=== PATIENT | female | born 1940 | race Caucasian/White ===

== ENCOUNTER → 2017-10-27 | Outpatient (CLI) | payer MEDICARE ==
[~2017-10-27] MED LIST: ALLOPURINOL100 MG PO; ASPIR 8181 MG PO; ASPIRIN; BENAZEPRIL HCL10 MG PO; HYDROXYCHLOROQ200 MG PO; LOSARTAN POTAS100 MG PO; LOVASTATIN; LOVASTATIN40 MG PO; MELATONIN3 MG PO; MELOXICAM; MELOXICAM15 MG PO; METOPROLOL HCT; METOPROLOL SUCC50 MG PO; METOPROLOL-HCT1 EAC1 PO; OXYBUTYNIN CHLOR5 MG PO; PANTOPRAZOLE; PLAQUENIL200 MG PO; PLAVIX; PLAVIX75 MG PO; POTASSIUM; POTASSIUM CHLO10 ME1 PO; PREDNISONE5 MG PO; PROTONIX40 MG PO; REGADENOSON 0.4 MG/5 ML SYR IV ONE; SERTRALINE HCL50 MG PO; STOOL SOFTENER50 MG PO
--- NOTE | 2017-10-27 13:16 | Cardiology Report ---
DATE OF STUDY: October 27, 2017 LEXISCAN STRESS TEST INDICATIONS: CAD. DESCRIPTION OF PROCEDURE: After informed consent, patient was brought to the stress lab. She was given 11 mCi of technetium 99 Myoview, and myocardial perfusion SPECT images were obtained in the horizontal long-axis, short-axis and vertical long-axis views. Subsequently, patient was given 0.4 mg Lexiscan over 10 seconds. Patient was given 33 mCi of technetium 99 Myoview, and myocardial perfusion SPECT images were obtained in the horizontal long-axis, short-axis and vertical long-axis views. Gating images were also obtained. Patient tolerated the procedure without any complications. REPORT: Baseline EKG shows sinus rhythm at 67 beats per minute, normal axis, normal intervals, nonspecific ST-T changes. PARAMETERS 1. Resting heart rate is 67 beats per minute. 2. Maximum heart rate is 92 beats per minute. 3. Resting blood pressure 148/75 mmHg. 4. Maximum blood pressure 153/78 mmHg. REASON FOR TERMINATION: Endpoint attained. INTERPRETATION 1. Negative for chest pain. 2. Negative for arrhythmias. 3. Blood pressure response consistent with Lexiscan. 4. No significant ST-T changes seen during Lexiscan infusion compared to baseline. 5. Analysis of SPECT images reveals uniform radioisotope uptake in all segments of the myocardium without any significant perfusion defects. CONCLUSION 1. No evidence of significant ischemia or infarction on this study. 2. No wall motion abnormalities. 3. Overall ejection fraction is 69%. Job#: [id number] EV
== END ==
LOC: NM 07:51
DX: I25.10 Atherosclerotic heart disease of native coronary artery without angina pectoris (principal); I10 Essential (primary) hypertension; N18.9 Chronic kidney disease, unspecified; E78.5 Hyperlipidemia, unspecified
CPT/HCPCS: 78452; 93017; A9502

== ENCOUNTER 2019-07-02 11:10 | Emergency (ER) | payer MEDICARE ==
[~2019-07-02] VITALS: Ht 160 cm; Wt 88.2 kg
[~2019-07-02 11:10] MED LIST changes: -REGADENOSON 0.4 MG/5 ML SYR IV ONE
--- OUTSIDE RECORDS SUMMARY | 2019-07-02 11:14 | XMS REPORT ---
Author Author [facility] Address Unknown Phone Unavailable Care Team Providers Care Sas Developer Analyst Name Role Phone TYRA ALANIZ Unavailable Unavailable Problems This patient has no known problems. Allergies, Adverse Reactions, Alerts This patient has no known allergies or adverse reactions. Medications This patient has no known medications. Results Test Description Test Time Test Comments Text Results Atomic Results Result Comments SCR MAMM BILATERAL SUMAYA CAD DIGITAL 2019-01-04 11:59:01 - SCR MAMM BILATERAL SUMAYA CAD DIGITALBILATERAL DIGITAL SCREENING MAMMOGRAM 3D/2D WITH CAD: 01/04/2019CLINICAL: Asymptomatic. Digital breast tomosynthesis was performed in addition to routine CC and MLO views. Current mammographic images were evaluated by either a [employer] M-Vu or a [employer] CAD (computer aided detection system). Comparison is made to exams dated 12/23/2017 mammogram and 07/30/2016 mammogram - [facility]. There are scattered fibroglandular tissues in both breasts. There are benign vascular calcifications and calcifications in both breasts. No suspicious mass, architectural distortion, malignant type calcification, or lymph node abnormality detected. Breast architecture is stable compared to prior exams.IMPRESSION: BENIGNThere is no mammographic evidence of malignancy. Resume annual screening mammography in one year. Pao lozoya/penrad:01/04/2019 11:59:01 Rubber Goods Inspector: Sarah Estrada , [facility] sent: BIRADS 1-2 Normal Mammogram BI-RADS: 2 Benign Stress Test - Treadmill ONLY [address] [address] Patient Name : MILADYS WOODWARD MR #: [id number] : 1940 Age/Sex: 77/F Adm Physician : TYRA ALANIZ MD Admit Date : Location : [place] Room/Bed : REPORT: Cardiology Report DATE OF STUDY: October 27, 2017 LEXISCAN STRESS TEST INDICATIONS: CAD. DESCRIPTION OF PROCEDURE: After informed consent, patient was brought to the stress lab. She was given 11 mCi of technetium 99 Myoview, and myocardial perfusion SPECT images were obtained in the horizontal long-axis, short-axis and vertical long-axis views. Subsequently, patient was given 0.4 mg Lexiscan over 10 seconds. Patient was given 33 mCi of technetium 99 Myoview, and myocardial perfusion SPECT images were obtained in the horizontal long- axis, short-axis and vertical long-axis views. Gating images were also obtained. Patient tolerated the procedure without any complications. REPORT: Baseline EKG shows sinus rhythm at 67 beats per minute, normal axis, normal intervals, nonspecific ST-T changes. PARAMETERS 1. Resting heart rate is 67 beats per minute. 2. Maximum heart rate is 92 beats per minute. 3. Resting blood pressure 148/75 mmHg. 4. Maximum blood pressure 153/78 mmHg. REASON FOR TERMINATION: Endpoint attained. INTERPRETATION 1. Negative for chest pain. 2. Negative for arrhythmias. 3. Blood pressure response consistent with Lexiscan. 4. No significant ST-T changes seen during Lexiscan infusion compared to baseline. 5. Analysis of SPECT images reveals uniform radioisotope uptake in all segments of the myocardium without any significant perfusion defects. CONCLUSION 1. No evidence of significant ischemia or infarction on this study. 2. No wall motion abnormalities. 3. Overall ejection fraction is 69%. Job#: [id number] EV Signature Date Dictated By: TYRA ALANIZ MD Transcribed By: [employer] on 10/27/17 <Electronically signed by TYRA ALANIZ MD><<Signature on File>>10/28/17 [id number] COPY TO:
[2019-07-02] MEDS ORDERED: AUGMENTIN 875-1 EACH PO (11:41)
[2019-07-02] MEDS ORDERED: FLONASE ALLERG9.9 ML (11:41)
[2019-07-02 11:56] VITALS: BP 129/70
[2019-07-02] MEDS ORDERED: ONDANSETRON ODT8 MG PO (11:59)
== END 2019-07-02 12:05 | disposition home or self-care (01) ==
LOC: FSED 11:10
DX: J01.00 Acute maxillary sinusitis, unspecified (principal); R50.9 Fever, unspecified; R11.0 Nausea; I10 Essential (primary) hypertension
CPT/HCPCS: 99282

== ENCOUNTER 2019-08-14 10:54 | Emergency (ER) | payer MEDICARE ==
[~2019-08-14] VITALS: Ht 160 cm; Wt 83.9 kg
[~2019-08-14 10:54] MED LIST changes: +AUGMENTIN 875-1 EACH PO; +FLONASE ALLERG9.9 ML; +ONDANSETRON ODT8 MG PO
[2019-08-14] MEDS ORDERED: KETOROLAC TROMETHAMINE 30 MG/ML VIAL IM STA (11:02)
[2019-08-14] MEDS ORDERED: DEXAMETHASONE SOD PHOS 10 MG/1 ML VIAL IM ONE (11:15)
--- NOTE | 2019-08-14 13:20 | Diagnostic Imaging Report ---
EXAMINATION: KNEE RIGHT THREE VIEWS INDICATION: Knee pain COMPARISON: None FINDINGS: There are postoperative findings of ORIF of the right tibia with an intramedullary kriss. No acute fracture or dislocation. Old healed distal tibial fracture. Moderate suprapatellar knee joint effusion. Mild tricompartmental degenerative changes. Chondrocalcinosis is noted. IMPRESSION: No acute osseous injury. Moderate knee joint effusion. Postoperative changes of prior ORIF of right tibia. Mild tricompartmental degenerative changes and chondrocalcinosis. Signed by: Uli Vela MD on 08/14/2019 1:16 PM
--- NOTE | 2019-08-14 13:21 | Diagnostic Imaging Report ---
EXAMINATION: HIP RIGHT 2-3 VW (+/- PELVIS) INDICATION: Hip pain COMPARISON: None FINDINGS: No acute fracture or dislocation. Alignment appears anatomic. Mild degenerative changes of both hip joints. Mild degenerative changes of the partially visualized lower lumbar spine. Fluid within the pelvis. Nonobstructive bowel gas pattern. IMPRESSION: No acute osseous injury. Mild degenerative changes of both hip joints. Signed by: Uli Vela MD on 08/14/2019 1:17 PM
[2019-08-14 14:51] VITALS: BP 112/59
== END 2019-08-14 14:23 | disposition home or self-care (01) ==
LOC: ER 10:54
DX: M25.561 Pain in right knee (principal); M17.11 Unilateral primary osteoarthritis, right knee; M16.11 Unilateral primary osteoarthritis, right hip; M25.461 Effusion, right knee; R26.2 Difficulty in walking, not elsewhere classified; I10 Essential (primary) hypertension
CPT/HCPCS: 73502; 73562; 99283; J1100; J1885

== ENCOUNTER 2023-12-27 08:20 | Observation (INO) | payer MEDICARE ==
[2023-12-24 10:04] LABS: BASOPHILS # (AUTO) 0.1 (0.0-0.1); EOSINOPHILS # (AUTO) 0.2 (0.0-0.4); HEMATOCRIT 31.2 % (34.2-44.1); HEMOGLOBIN 10.3 g/dL (12.0-16.0); LYMPHOCYTES % 38.8 % (18.0-39.1); MEAN CORPUSCULAR HEMOGLOBIN 30.4 pg (28-32); MONOCYTES # (AUTO) 0.4 (0.2-0.8); MONOCYTES % 7.4 % (4.4-11.3); NEUTROPHILS # (AUTO) 2.6 (2.1-6.9); NEUTROPHILS % 48.6 % (38.7-80.0); PLATELET COUNT 136 x10e3/uL (140-360); RED BLOOD COUNT 3.39 x10e6/uL (3.6-5.1); RED CELL DISTRIBUTION WIDTH 13.6 % (11.7-14.4); WHITE BLOOD COUNT 5.26 x10e3/uL (4.8-10.8)
[~2023-12-27 08:20] MED LIST changes: +AREDS PO; +D3-5000125 MCG; +GLUCOSAMIN-CHO1 EACH PO; +LIPITOR20 MG PO; +METOPROLOL SUCC25 MG PO; +ROPIVACAINE 246.25 MG, EPINEPHRINE HCL 1:1000 1ML 0.5 MG, CLONIDINE HCL 0.08 MG, KETORO... INJ ONE; +TYLENOL EXTRA500 MG PO
[2023-12-27] MEDS: LACTATED RINGER'S 1,000 ML ONE (08:47)
[2023-12-27] MEDS: GABAPENTIN 300 MG CAP ONE (08:48)
[2023-12-27] MEDS: CEFAZOLIN SODIUM 2 GM ONE (08:48)
[2023-12-27] MEDS: DEXAMETHASONE SOD PHOS 10 MG/1 ML VIAL ONE (08:49)
[2023-12-27] MEDS: CELECOXIB 200 MG CAP ONE (08:49)
[2023-12-27] MEDS ORDERED: TRANEXAMIC ACID 20 ML ONE (10:07)
[2023-12-27] MEDS ORDERED: Vancomycin IV 500 MG ONE (10:08)
[2023-12-27] MEDS ORDERED: SODIUM CHLORIDE 0.9% 500ML 500 ML ONE (10:08)
[2023-12-27] MEDS ORDERED: FENTANYL CITRATE/PF 100MCG/2 ML INJ ONE ×2 (10:14→13:31)
[2023-12-27] MEDS ORDERED: MIDAZOLAM HCL 2 MG/2 ML VIAL ONE (10:14)
[2023-12-27] MEDS ORDERED: ONDANSETRON HCL INJ 2MG/ML 2ML 2 MG/ML VIAL IV PRN (12:00)
[2023-12-27] MEDS ORDERED: DOCUSATE SODIUM 100 MG CAP PO PRN (12:00)
[2023-12-27] MEDS ORDERED: SODIUM CHLORIDE 0.9% 1000ML 1,000 ML IV SCH (12:00)
[2023-12-27] MEDS ORDERED: DIPHENHYDRAMINE HCL INJ 50 MG/ML VIAL IV PRN (12:00)
[2023-12-27] MEDS ORDERED: HYDROCODONE/APAP 5MG-325MG TAB PO PRN (12:00)
[2023-12-27] MEDS ORDERED: HYDROCODONE/APAP 7.5MG-325MG 1 EA TAB PO PRN (12:00)
[2023-12-27 13:20] VITALS: TEMP 97.8
[2023-12-27] MEDS ORDERED: DEXAMETHASONE SOD PHOS 10 MG/1 ML VIAL ONE (13:42)
[2023-12-27] MEDS ORDERED: ROPIVACAINE 0.5% 5 MG/ML 30 ML SDV ONE (13:42)
[2023-12-27] MEDS: ONDANSETRON HCL INJ 2MG/ML 2ML 2 MG/ML VIAL IV ONE (14:16)
[2023-12-27] MEDS ORDERED: ONDANSETRON HCL INJ 2MG/ML 2ML 2 MG/ML VIAL ONE ×2 (14:19→14:23)
[2023-12-27] MEDS ORDERED: PROPOFOL IV EMULSION 10 MG/ML 20 ML VIAL ONE (14:23)
[2023-12-27] MEDS ORDERED: DEXAMETHASONE SOD PHOS INJ 4 MG/ML SDV ONE (14:23)
[2023-12-27] MEDS ORDERED: LIDOCAINE HCL 2% LOCAL INJ 5 ML SDV VIAL INJ ONE (14:23)
[2023-12-27] MEDS ORDERED: ACETAMINOPHEN 1000 MG/100 ML IV ONE (14:23)
[2023-12-27] MEDS ORDERED: FAMOTIDINE 20 MG/2 ML VIAL IV ONE (14:23)
[2023-12-27] MEDS ORDERED: METHOCARBAMOL 100MG/1ML 10ML VIAL ONE (14:23)
[2023-12-27 15:00] VITALS: BP 129/88; PULSE 70; RESP 15; O2SAT 97
[2023-12-27] MEDS ORDERED: ASPIRIN 325 MG TAB PO SCH (17:00)
[2023-12-27] MEDS ORDERED: CELECOXIB 100 MG CAP PO SCH (17:00)
[2023-12-28] MEDS ORDERED: ACETAMINOPHEN 1000 MG/100 ML IV PRN (12:00)
== END 2023-12-27 15:18 | disposition home health service (06) ==
LOC: OR 08:20 → PACU V 11:58
PROVIDERS: ADMIT Specialist; ATTEND Specialist
DX: M17.12 Unilateral primary osteoarthritis, left knee (principal); I11.9 Hypertensive heart disease without heart failure; I25.10 Atherosclerotic heart disease of native coronary artery without angina pectoris; Z95.5 Presence of coronary angioplasty implant and graft; M10.9 Gout, unspecified; K21.9 Gastro-esophageal reflux disease without esophagitis; Z01.812 Encounter for preprocedural laboratory examination; Z01.818 Encounter for other preprocedural examination; Z01.810 Encounter for preprocedural cardiovascular examination; Z79.899 Other long term (current) drug therapy; Z79.02 Long term (current) use of antithrombotics/antiplatelets; Z88.5 Allergy status to narcotic agent
CPT/HCPCS: 27447; 36415; 71046; 73560; 85025; 86850; 86870; 86880; 86900; 86905; 93005; 97116; 97161; 97530; 99001; C1713 ×2; C1776 ×4; G0378; J0131; J0171; J0690; J1100 ×2; J1885; J2001; J2250; J2405; J2704; J2795; J2800; J3010; J3370; J7040; J7121